=== PATIENT | male | born 1980 | race African-American/Black ===

== ENCOUNTER 2020-01-24 10:22 | Emergency (ER) | payer BC, OTHER ==
--- NOTE | 2020-01-24 10:36 | ER Document Report ---
ED Medical Screen (RME) - General Chief Complaint: Flank Pain Stated Complaint: LEFT FLANK PAIN Time Seen by Provider: 01/24/20 10:34 Primary Care Provider: ANNE ESPOSITO FNP [Primary Care Provider] - Follow up as needed Notes: HPI: 39-year-old male presenting with left lower quadrant pain over the last 3 to 4 days with nausea and fevers at home. Patient had been sent by his PCP for lab work and a Covid test 2 days ago, Covid test was apparently negative the patient had an elevated white count they called in a prescription for Cipro Flagyl for the patient which she has not yet filled. No history of diverticular disease that he is aware of. Patient reports constipation for a week. Increased pain with movement PHYSICAL EXAMINATION: Moderately tender through the left lower quadrant on palpation I have greeted and performed a rapid initial assessment of this patient. A comprehensive ED assessment and evaluation of the patient, analysis of test results and completion of medical decision making process will be conducted by an additional ED providers. - Related Data Allergies/Adverse Reactions: No Known Allergies Allergy (Unverified 01/24/20 10:30) Past Medical History - Social History Chew tobacco use (# tins/day): No Drug Abuse: None Physical Exam - Vital signs Vitals: Temp Pulse Resp BP Pulse Ox 99.5 F 96 20 119/66 99 01/24/20 10:01/24/20 10:29 01/24/20 10:29 01/24/20 10:29 01/24/20 10:29 Course - Vital Signs Vital signs: Temp Pulse Resp BP Pulse Ox 99.5 F 96 20 119/66 99 01/24/20 10:29 01/24/20 10:29 01/24/20 10:29 01/24/20 10:29 01/24/20 10:29 Doctor's Discharge - Discharge Referrals: ANNE ESPOSITO FNP [Primary Care Provider] - Follow up as needed
[2020-01-24] MEDS ORDERED: ONDANSETRON HCL INJ/PF 4 MG/2 ML SDV IV ONE (10:54)
[2020-01-24] MEDS ORDERED: NORMAL SALINE 1000 ML 1,000 ML IV ONE ×2 (10:54→18:30)
[2020-01-24] MEDS ORDERED: MORPHINE SULFATE 10 MG/ML INJ IV ONE (10:54)
[2020-01-24 11:07] LABS: HEMATOCRIT 42.8 % (37.9-51.0); HEMOGLOBIN 14.4 g/dL (13.5-17.0); MEAN CORPUSCULAR HEMOGLOBIN 30.6 pg (27.0-33.4); MEAN CORPUSCULAR HGB CONC 33.6 g/dL (32.0-36.0); MEAN CORPUSCULAR VOLUME 91 fl (80-97); PLATELET COUNT 338 10^3/uL (150-450); RED BLOOD COUNT 4.71 10^6/uL (4.35-5.55); RED CELL DISTRIBUTION WIDTH 13.1 % (11.5-14.0); WHITE BLOOD COUNT 15.7 10^3/uL (4.0-10.5)
[2020-01-24 11:18] LABS: ALBUMIN 3.9 g/dL (3.5-5.0); ALKALINE PHOSPHATASE 159 U/L (38-126); ANION GAP 10 (5-19); ASPARTATE AMINO TRANSFERASE 105 U/L (17-59); BILIRUBIN,TOTAL 4.3 mg/dL (0.2-1.3); BLOOD UREA NITROGEN 17 mg/dL (7-20); CALCIUM 9.4 mg/dL (8.4-10.2); CARBON DIOXIDE 31 mmol/L (22-30); CHLORIDE 98 mmol/L (98-107); GLUCOSE 96 mg/dL (75-110); POTASSIUM 3.9 mmol/L (3.6-5.0); TOTAL PROTEIN 7.5 g/dL (6.3-8.2)
[2020-01-24 11:20] LABS: APPEARANCE,URINE CLEAR; BILIRUBIN,URINE NEGATIVE (NEGATIVE); COLOR,URINE AMBER; GLUCOSE, URINE NEGATIVE (NEGATIVE); KETONES,URINE TRACE mg/dL (NEGATIVE); LEUKOCYTE ESTERASE,URINE TRACE (NEGATIVE); NITRITE,URINE NEGATIVE (NEGATIVE); PROTEIN,URINE 100 mg/dL (NEGATIVE); URINE SPECIFIC GRAVITY 1.014
[2020-01-24 11:45] LABS: ABSOLUTE LYMPHOCYTES# (MANUAL) 0.9 10^3/uL (0.5-4.7); ABSOLUTE MONOCYTES # (MANUAL) 0.2 10^3/uL (0.1-1.4); BAND NEUTROPHILS % (MANUAL) 19 % (3-5); BASOPHILS % (MANUAL) 0 % (0-2); EOSINOPHILS % (MANUAL) 2 % (0-6); LYMPHOCYTES % (MANUAL) 6 % (13-45); MONOCYTES % (MANUAL) 1 % (3-13); PLATELET COMMENT ADEQUATE; RBC MORPHOLOGY COMMENT NORMO-CYTIC/CHROMIC; SEGMENTED NEUTROPHILS % (MAN) 72 % (42-78); TOTAL CELLS COUNTED 100
--- NOTE | 2020-01-24 12:02 | RADIOLOGY REPORT (SQ) ---
EXAM DESCRIPTION: CT ABD/PELVIS WITH IV ONLY IMAGES COMPLETED DATE/TIME: 01/24/2020 11:38 am REASON FOR STUDY: LLQ pain eval for diverticulitis COMPARISON: None. TECHNIQUE: CT scan of the abdomen and pelvis performed using helical scanning technique with dynamic intravenous contrast injection. No oral contrast. Images reviewed with lung, soft tissue, and bone windows. Reconstructed coronal and sagittal MPR images reviewed. Delayed images for evaluation of the urinary system also acquired. All images stored on PACS. All CT scanners at this facility use dose modulation, iterative reconstruction, and/or weight based d osing when appropriate to reduce radiation dose to as low as reasonably achievable (ALARA). [facility]: Dose Right [facility]: CareDose [facility]: Dose Right [facility]: Teradose 4D [facility]: Hitch Radio CONTRAST TYPE AND DOSE: contrast/concentration: Isovue 350.00 mmol/ml; Total Contrast Delivered: 100 .0 ml; Total Saline Delivered: 72.0 ml RENAL FUNCTION: Not record RADIATION DOSE: CT Rad equipment meets quality standard of care and radiation dose reduction techniq ues were employed. CTDIvol: 7.0 - 9.9 mGy. DLP: 904 mGy-cm.. LIMITATIONS: None. FINDINGS: LOWER CHEST: No significant findings. No nodules or infiltrates. LIVER: Fatty liver. No focal masses. SPLEEN: Normal size. No focal lesions. PANCREAS: No masses. No significant calcifications. No adjacent inflammation or peripancreatic fluid collections. Pancreatic duct not dilated. GALLBLADDER: No identified stones by CT criteria. No inflammatory changes to suggest cholecystitis. ADRENAL GLANDS: No significant masses or asymmetry. RIGHT KIDNEY AND URETER: No solid masses. No significant calcifications. No hydronephrosis or hyd roureter. LEFT KIDNEY AND URETER: Upper pole cyst. No significant calcifications. No hydronephrosis or hydr oureter. AORTA AND VESSELS: No aneurysm. No dissection. Renal arteries, SMA, celiac without stenosis. RETROPERITONEUM: No retroperitoneal adenopathy, hemorrhage or masses. BOWEL AND PERITONEAL CAVITY: No masses or inflammatory changes. No free fluid or peritoneal masses. APPENDIX: Normal. PELVIS: No mass. No free fluid. Normal bladder. ABDOMINAL WALL: No masses. No hernias. BONES: No significant or acute findings. OTHER: No other significant finding. IMPRESSION: Fatty liver. No diverticulitis. TECHNICAL DOCUMENTATION: JOB ID: [id number] Quality ID # [id number]: Final reports with documentation of one or more dose reduction techniques (e.g., Au tomated exposure control, adjustment of the mA and/or kV according to patient size, use of iterative reconstruction technique) 2010 [employer]- All Rights Reserved Reading location - IP/workstation name: [email or web address]
--- NOTE | 2020-01-24 13:03 | ER Document Report ---
Entered by ANITA DARLING SCRIBE 01/24/20 1054 Acting as scribe for:BENIGNO ODOM MD ED GI/ - General Chief Complaint: Flank Pain Stated Complaint: LEFT FLANK PAIN Time Seen by Provider: 01/24/20 10:34 Mode of Arrival: Ambulatory Information source: Patient Notes: This 39 year old male patient presents to the emergency department today with complaints of left lower quadrant abdominal pain which began on January 14 and increased since onset. He went to an urgent care a few days ago and was told he had an elevated white blood cell count and he was sent home on Cipro and Flagyl for likely diverticulitis. He has not picked it up yet. He has continued to have fevers and nausea but denies vomiting, diarrhea, or testicular pain. Also complains of constipation for the past week and does notice that the pain is worse with movement. Patient does report that he was Covid tested at the [facility] 01/16/2020, and was told the test was negative. This test was the day after he started having the abdominal pain with fever. He did the test out of concern for possible exposure as he drives a truck and makes deliveries, and last week was making deliveries in [place] where people were not wearing masks. - Related Data Allergies/Adverse Reactions: No Known Allergies Allergy (Unverified 01/24/20 10:30) Past Medical History - General Information source: Patient - Social History Smoking Status: Never Smoker Cigarette use (# per day): No Chew tobacco use (# tins/day): No Drug Abuse: None Lives with: Family Family History: Reviewed & Not Pertinent Patient has homicidal ideation: No - Medical History Medical History: Negative Past Surgical History: Reports: Hx Inguinal Hernia - Left Review of Systems - Review of Systems Constitutional: See HPI, Fever EENT: No symptoms reported Cardiovascular: No symptoms reported Respiratory: No symptoms reported Gastrointestinal: See HPI, Abdominal pain, Nausea. denies: Vomiting Genitourinary: No symptoms reported Male Genitourinary: No symptoms reported Musculoskeletal: No symptoms reported Skin: No symptoms reported Hematologic/Lymphatic: No symptoms reported Neurological/Psychological: No symptoms reported -: Yes All other systems reviewed and negative Physical Exam - Vital signs Vitals: Temp Pulse Resp BP Pulse Ox 99.5 F 96 20 119/66 99 01/24/20 10:29 01/24/20 10:29 01/24/20 10:29 01/24/20 10:29 01/24/20 10:29 - Notes Notes: Physical Exam: General: Alert, appears uncomfortable. HEENT: Normocephalic. Atraumatic. PERRL. Extraocular movements intact. Oropharynx clear. Neck: Supple. Non-tender. Respiratory: No respiratory distress. Clear and equal breath sounds bilaterally. Cardiovascular: Regular rate and rhythm. Abdominal: Hypoactive bowel sounds. No distension. Percussion dull. Maximal tenderness is in the left lower quadrant with guarding but no rebound. There is also tenderness in the right lower quadrant and right upper quadrant, but denies tenderness in left upper quadrant although he tends to guard anyway. Back: No gross abnormalities. Extremities: Moves all four extremities. Upper extremities: Normal inspection. Normal ROM. Lower extremities: Normal inspection. No edema. Normal ROM. Neurological: Normal cognition. AAOx4. Normal speech. Psychological: Normal affect. Normal Mood. Skin: Warm. Dry. Normal color. Course - Vital Signs Vital signs: Temp Pulse Resp BP Pulse Ox 101.2 F H 96 20 119/66 99 01/24/20 15:02 01/24/20 10:29 01/24/20 10:29 01/24/20 10:29 01/24/20 10:29 - Laboratory Result Diagrams: 01/24/20 10:45 01/24/20 10:45 Laboratory results interpreted by me: 01/24/20 01/24/20 01/24/20 10:45 10:45 10:45 WBC 15.7 H Band Neutrophils % 19 H Lymphocytes % (Manual) 6 L Monocytes % (Manual) 1 L Abs Neuts (Manual) 14.3 H Carbon Dioxide 31 H Ferritin 2250.00 H Total Bilirubin 4.3 H Direct Bilirubin 3.0 H AST 105 H ALT 110 H Alkaline Phosphatase 159 H C-Reactive Protein 619.0 H Urine Protein Urine Ketones Urine Blood Urine Urobilinogen Ur Leukocyte Esterase Acetaminophen 01/24/20 01/24/20 10:45 10:56 WBC Band Neutrophils % Lymphocytes % (Manual) Monocytes % (Manual) Abs Neuts (Manual) Carbon Dioxide Ferritin Total Bilirubin Direct Bilirubin AST ALT Alkaline Phosphatase C-Reactive Protein Urine Protein 100 H Urine Ketones TRACE H Urine Blood SMALL H Urine Urobilinogen 4.0 H Ur Leukocyte Esterase TRACE H Acetaminophen < 10 L - Diagnostic Test Radiology reviewed: Image reviewed, Reports reviewed - IV contrasted CT scan of the abdomen pelvis shows fatty liver, no diverticulitis, no other acute findings. Ultrasound gallbladder shows moderate hepatic steatosis with focal fatty sparing at the gallbladder fossa. Discharge - Discharge Clinical Impression: Hepatitis Fever Qualifiers: Fever type: unspecified Qualified Code(s): R50.9 - Fever, unspecified Leukocytosis Qualifiers: Leukocytosis type: bandemia Qualified Code(s): D72.825 - Bandemia Abdominal pain Qualifiers: Abdominal location: left lower quadrant Qualified Code(s): R10.32 - Left lower quadrant pain Condition: Stable Disposition: ADMITTED INPATIENT Admitting Provider: Mel (Hospitalist) Unit Admitted: Medical Floor I personally performed the services described in the documentation, reviewed and edited the documentation which was dictated to the scribe in my presence, and it accurately records my words and actions.
[2020-01-24] MEDS ORDERED: PIPERACILLIN/TAZOBACTAM 3.375 GM VIAL IV ONE (13:05)
--- NOTE | 2020-01-24 15:33 | RADIOLOGY REPORT (SQ) ---
EXAM DESCRIPTION: U/S ABDOMEN LIMITED W/O DOP IMAGES COMPLETED DATE/TIME: 01/24/2020 2:03 pm REASON FOR STUDY: Elevated LFTs, bilirubin, WBCs COMPARISON: CT abdomen and pelvis same date. TECHNIQUE: Dynamic and static grayscale images acquired of the abdomen and recorded on PACS. Additio nal selected color Doppler and spectral images recorded. LIMITATIONS: None. FINDINGS: PANCREAS: No masses. Visualized pancreatic duct normal caliber. LIVER: Normal size and contour. Moderate diffuse echogenicity throughout, consistent with moderate h epatic steatosis. There is a geographic area of focal fatty sparing at the gallbladder fossa measuri ng about 3.2 x 1.1 x 2.1 cm. No focal hepatic mass. LIVER VASCULATURE: Normal directional flow of the main portal vein and hepatic veins. GALLBLADDER: No stones. Normal wall thickness. No pericholecystic fluid. ULTRASOUND-DETECTED MANZO'S SIGN: Negative. INTRAHEPATIC DUCTS AND COMMON DUCT: CBD and intrahepatic ducts normal caliber. No filling defects. INFERIOR VENA CAVA: Normal flow. AORTA: No aneurysm. RIGHT KIDNEY: Normal size. Normal echogenicity. No solid or suspicious masses. No hydronephrosis. No calcifications. PERITONEAL AND RIGHT PLEURAL SPACE: No ascites or effusions. OTHER: No other significant findings. IMPRESSION: Moderate hepatic steatosis. Focal fatty sparing at the gallbladder fossa. TECHNICAL DOCUMENTATION: JOB ID: [id number] [employer]- All Rights Reserved Reading location - IP/workstation name: [id number]
--- NOTE | 2020-01-24 16:02 | RADIOLOGY REPORT (SQ) ---
EXAM DESCRIPTION: CHEST SINGLE VIEW IMAGES COMPLETED DATE/TIME: 01/24/2020 2:39 pm REASON FOR STUDY: Covid hepatitis. COMPARISON: None. EXAM PARAMETERS: NUMBER OF VIEWS: One view. TECHNIQUE: Single frontal radiographic view of the chest acquired. RADIATION DOSE: NA LIMITATIONS: None. FINDINGS: LUNGS AND PLEURA: No opacities, masses or pneumothorax. No pleural effusion. MEDIASTINUM AND HILAR STRUCTURES: No masses. Contour normal. HEART AND VASCULAR STRUCTURES: Heart normal in size. Normal vasculature. BONES: No acute findings. HARDWARE: None in the chest. OTHER: No other significant finding. IMPRESSION: NO ACUTE RADIOGRAPHIC FINDING IN THE CHEST. TECHNICAL DOCUMENTATION: JOB ID: [id number] 2010 [employer]- All Rights Reserved Reading location - IP/workstation name: [email or web address]
[2020-01-24] MEDS ORDERED: ACETAMINOPHEN 325 MG TABLET PO ONE (16:05)
--- NOTE | 2020-01-24 17:29 | PDOC H&P ---
History of Present Illness Admission Date/PCP: 01/24/20 16:11 Patient complains of: high grade fever History of Present Illness: APPLE SEWELL JR is a 39 year old male, hx of inguinal hernia who came in the ED today due to high grade fever. Symptoms started 1 week PTC when he developed fever of 102-104 with chills. He also complained of lower abdominal pain, on and off crampy, non radiating, not worse with food intake. He was seen at an urgent care clinic a couple of days ago where he was noted to have an elevated white count and was prescribed cipro and flagyl for presumed diverticulitis. He denies any diarrhea and is in fact constipated. No cough, no chest pain, no SOB, no urinary symptoms. He has no arthralgia/arthritis, no rashes. He denies any pre vious hepatitis, last alcohol drink was 2 months ago. He is not on any supplements or is taking any medications. In the ED VS BP 1-6/56, HR 96. T 101.2, O2sat 98% on RA. CBC showed a WBC of 15.7, hgb 14. CMP showed a normal electrolytes. AST 105, ALT 110, T bili 4.3, Direct Bili 3.0, Ferritin 2250, CRP 619. CXR normal, UA normal. HE was given 1 dose of zosyn, 1L NS and tylenol for fever. US showed fatty liver, CT abdomen showed hepatic steatosis. No cholecytstitis or GB stone. Hospitalist service called for further eval and for admission. Past Medical History Medical History: None Cardiac Medical History: Reports: None Pulmonary Medical History: Reports: None EENT Medical History: Reports: None Neurological Medical History: Reports: None Endocrine Medical History: Reports: None Renal/ Medical History: Reports: None Malignancy Medical History: Reports: None GI Medical History: Reports: Other - inguinal hernia Musculoskeltal Medical History: Reports: None Skin Medical History: Reports: None Psychiatric Medical History: Reports: None Traumatic Medical History: Reports: None Hematology: Reports: None Infectious Medical History: Reports: None Past Surgical History Past Surgical History: Reports: Herniorrhaphy Social History Lives with: Family Smoking Status: Never Smoker Electronic Cigarette use?: No Hx Recreational Drug Use: No Family History Family History: Reviewed & Not Pertinent Parental Family History Reviewed: Yes Children Family History Reviewed: Yes Sibling(s) Family History Reviewed.: Yes Medication/Allergy Allergies/Adverse Reactions: No Known Allergies Allergy (Unverified 01/24/20 10:30) Review of Systems Constitutional: PRESENT: chills, fever(s). ABSENT: fatigue Eyes: ABSENT: visual disturbances Ears: ABSENT: hearing changes Nose, Mouth, and Throat: ABSENT: mouth pain Cardiovascular: ABSENT: chest pain, dyspnea on exertion Respiratory: ABSENT: cough Gastrointestinal: PRESENT: constipation. ABSENT: diarrhea Genitourinary: ABSENT: dysuria, hematuria Integumentary: ABSENT: diaphoresis Psychiatric: ABSENT: hallucinations Physical Exam Vital Signs: Temp Pulse Resp BP Pulse Ox 101.2 F H 96 20 119/66 99 01/24/20 15:02 01/24/20 10:29 01/24/20 10:29 01/24/20 10:29 01/24/20 10:29 Intake & Output 01/23/20 01/24/20 01/25/20 06:59 06:59 06:59 Intake Total 1000 Balance 1000 Weight 89.1 kg General appearance: PRESENT: no acute distress, cooperative Head exam: PRESENT: atraumatic, normocephalic Eye exam: PRESENT: EOMI, PERRLA, scleral icterus - mild scleral icterus Mouth exam: PRESENT: moist Neck exam: PRESENT: full ROM Respiratory exam: PRESENT: clear to auscultation flor, symmetrical, unlabored Cardiovascular exam: PRESENT: RRR, +S1, +S2. ABSENT: tachycardia Pulses: PRESENT: +2 pedal pulses bilateral Vascular exam: ABSENT: pallor GI/Abdominal exam: PRESENT: normal bowel sounds, soft, tenderness - Right upper quadrant, no ventura's, no rebound Extremities exam: PRESENT: full ROM Musculoskeletal exam: PRESENT: full ROM Neurological exam: PRESENT: alert, awake, oriented to person, oriented to place, oriented to time, oriented to situation Psychiatric exam: PRESENT: normal mood Skin exam: PRESENT: normal color Results Laboratory Results: 01/24/20 10:45 01/24/20 10:45 01/24/20 01/24/20 01/24/20 10:45 10:45 10:45 WBC 15.7 H RBC 4.71 Hgb 14.4 Hct 42.8 MCV 91 MCH 30.6 MCHC 33.6 RDW 13.1 Plt Count 338 Seg Neutrophils % Not Reportable Sodium 139.1 Potassium 3.9 Chloride 98 Carbon Dioxide 31 H Anion Gap 10 BUN 17 Creatinine 1.23 Est GFR ( Amer) > 60 Glucose 96 Calcium 9.4 Ferritin 2250.00 H Total Bilirubin 4.3 H AST 105 H Alkaline Phosphatase 159 H C-Reactive Protein 619.0 H Total Protein 7.5 Albumin 3.9 Lipase 24.1 Urine Color Urine Appearance Urine pH Ur Specific Dolphin Urine Protein Urine Glucose (UA) Urine Ketones Urine Blood Urine Nitrite Ur Leukocyte Esterase Urine WBC (Auto) Urine RBC (Auto) 01/24/20 10:56 WBC RBC Hgb Hct MCV MCH MCHC RDW Plt Count Seg Neutrophils % Sodium Potassium Chloride Carbon Dioxide Anion Gap BUN Creatinine Est GFR ( Amer) Glucose Calcium Ferritin Total Bilirubin AST Alkaline Phosphatase C-Reactive Protein Total Protein Albumin Lipase Urine Color ARINA Urine Appearance CLEAR Urine pH 7.0 Ur Specific Dolphin 1.014 Urine Protein 100 H Urine Glucose (UA) NEGATIVE Urine Ketones TRACE H Urine Blood SMALL H Urine Nitrite NEGATIVE Ur Leukocyte Esterase TRACE H Urine WBC (Auto) 5 Urine RBC (Auto) 5 Impressions: Abdomen/Pelvis CT 01/24/20 10:35 IMPRESSION: Fatty liver. No diverticulitis. Abdomen Ultrasound 01/24/20 13:06 IMPRESSION: Moderate hepatic steatosis. Focal fatty sparing at the gallbladder fossa. Chest X-Ray 01/24/20 15:21 IMPRESSION: NO ACUTE RADIOGRAPHIC FINDING IN THE CHEST. Assessment and Plan - Diagnosis (1) Hepatitis Is this a current diagnosis for this admission?: Yes Plan: - Came in due to abdominal pain and high grade fever - Transaminitis noted - CT abdomen hepatic steatosis, US fatty liver no GB stone - ferritin elevated, CRP elevated - T.bili elevated - ddx POWERS, viral hepatitis, hemochromatosis - patient is stable and can otherwise go home with follow up with PCP and Gastro referral. If fever persists advised to go to a hospital with GI doctor for further work up as he would likely need ERCP. - discharge on tylenol, lactulose for constipation - advised increased fluid intake (2) Fever Qualifiers: Fever type: unspecified Qualified Code(s): R50.9 - Fever, unspecified Is this a current diagnosis for this admission?: Yes Plan: - continue tylenol and IV fluids (3) Leukocytosis Qualifiers: Leukocytosis type: bandemia Qualified Code(s): D72.825 - Bandemia Is this a current diagnosis for this admission?: Yes Plan: - UA and CXR clear - CT abdomen no diverticulitis, obstruction or perf. Shows steatosis hepatic - given zosyn - Advised to continue cipro and flagyl previously prescribed - Plan Summary Summary: Patient to be discharged home. Continue tylenol. Advised that if symptoms persis t to go to a hospital with a kennel aide for further work up for hepatitis. - Time Time Spent with patient: 25-34 minutes Medications reviewed and adjusted accordingly: Yes Anticipated Discharge Disposition: Home, Self Care Anticipated Discharge Timeframe: within 24 hours
[2020-01-24] MEDS ORDERED: IBUPROFEN 400 MG TABLET PO ONE (18:15)
[2020-01-24 19:04] VITALS: BP 110/60
== END 2020-01-24 19:32 | disposition home or self-care (01) ==
LOC: ER 10:22 → EH 16:11 → UNDOADMIN 16:11 → UNDODISIN 19:32 → EH 19:32
DX: D72.825 Bandemia (principal); K75.9 Inflammatory liver disease, unspecified; R10.32 Left lower quadrant pain; K59.00 Constipation, unspecified; R50.9 Fever, unspecified
CPT/HCPCS: 99285; 96361; 96365; 36415; 87040; 82728; 83615; 83690; 80307; 85025; 86140; 80053; 81001; 71045; 76705; 74177; J3490; J7030; J2543